=== PATIENT | male | born 1985 | race Caucasian/White ===

== ENCOUNTER 2017-05-17 17:16 | Emergency (ER) | payer OTHER ==
[2017-05-17] MEDS ORDERED: Lidocaine 1% w/Epinephrine 1:100K 30 ML VIAL ONE (17:22)
[2017-05-17] MEDS ORDERED: Oxymetazoline HCl 0.05% ( 15 ML ) ONE ×2 (18:34→18:44)
[2017-05-17] MEDS ORDERED: Sulfameth/Trimethoprim DS 800-160mg TAB ONE (18:47)
== END 2017-05-17 19:10 | disposition home or self-care (01) ==
LOC: BURERS 17:16
DX: R04.0 Epistaxis (principal)
CPT/HCPCS: 30903; J2001

== ENCOUNTER 2017-05-18 13:59 | Emergency (ER) | payer OTHER ==
[2017-05-18] MEDS ORDERED: Oxymetazoline HCl 0.05% ( 15 ML ) ONE (14:11)
[2017-05-18] MEDS ORDERED: HYDROcodone/Acetaminophen 5/325 mg Tablet ONE (14:44)
== END 2017-05-18 15:42 | disposition home or self-care (01) ==
LOC: BURERS 13:59
DX: R04.0 Epistaxis (principal); F17.210 Nicotine dependence, cigarettes, uncomplicated
CPT/HCPCS: 99283